=== PATIENT | female | born 2000 | race Caucasian/White ===

== ENCOUNTER 2021-03-30 02:24 | Emergency (ER) | payer SELFPAY ==
[~2021-03-30] VITALS: Ht 173 cm; Wt 78.0 kg
[2021-03-30] MEDS ORDERED: PANTOPRAZOLE 40 MG (PROTONIX) VIAL IV ONE (02:30)
[2021-03-30] MEDS ORDERED: ONDANSETRON 4 MG/2 ML (SDV) Z0FRAN IVP ONE (02:30)
[2021-03-30] MEDS ORDERED: LACTATED RINGERS 1,000 ML IV ONE ×3 (02:30→03:30)
[2021-03-30] MEDS ORDERED: ONDANSETRON 4 MG/2 ML (SDV) Z0FRAN ONE (02:35)
[2021-03-30] MEDS ORDERED: PANTOPRAZOLE 40 MG (PROTONIX) VIAL ONE (02:35)
--- NOTE | 2021-03-30 02:39 | ED General ---
General Chief Complaint: Substance Abuse Stated Complaint: ETOH Source of Information: Patient Exam Limitations: Intoxication History of Present Illness Date Seen by Provider: Mar 30, 2021 Time Seen by Provider: 02:27 Initial Comments PT ARRIVES VIA POV --FRIENDS BROUGHT HER TO ER PT IS INTOXICATED AND HAS BEEN VOMITING/DRY HEAVING PT STATES SHE HAS BEEN TO MULTIPLE FRAT PARTIES TONIGHT--CLAIMS SHE HAS HAD 2 BEERS AND 2 SHOTS OF DENIES LEAVING DRINKS UNATTENDED ON ARRIVAL, PT IS UNABLE TO STAND OR TALK,AND APPEARED "UNRESPONSIVE" AND PT REQUIRED WHEELCHAIR ON ARRIVAL AND IS DRY HEAVING LITERALLY SOON PT GOT BACK TO ROOM AND ONTO ER CART, PT IS NOW SUDDENLY AWAKE, ALERT, SMILING AND TALKING AND ANSWERING ALL QUESTIONS, WITH VERY MINIMAL SLURRING OF SPEECH, AND NO LONGER DRY HEAVING PT IS ABLE TO GET UP TO BEDSIDE COMMODE ON HER OWN PT IS [employer] FROM [place] CLAIMS SHE ONLY DRINKS ONCE A MONTH DENIES DRUG USE LMP--UNKNOWN, NO CONTROL, IS SEXUALLY ACTIVE [employer] Allergies and Home Medications Allergies Coded Allergies: No Allergy Information Available (Unverified , 03/30/21) Physical Exam Vital Signs Vital Signs - First Documented 03/30/21 02:28 Temp 36.6 Pulse 80 Resp 12 B/P (MAP) 124/85 (98) Pulse Ox 100 O2 Delivery Room Air Capillary Refill : Height, Weight, BMI Height: '" Weight: lbs. oz. kg; BMI Method: Progress/Results/Core Measures Suspected Sepsis SIRS Temperature: Pulse: Respiratory Rate: Laboratory Tests 03/30/21 02:30: White Blood Count 9.6 Blood Pressure / Mean: Laboratory Tests 03/30/21 02:30: Creatinine 0.93, Platelet Count 318, Total Bilirubin 0.3 Results/Orders Lab Results Laboratory Tests Test 03/30/21 02:30 03/30/21 04:05 Range/Units White Blood Count 9.6 4.3-11.0 10^3/uL Red Blood Count 4.17 3.80-5.11 10^6/uL Hemoglobin 13.0 11.5-16.0 g/dL Hematocrit 37 35-52 % Mean Corpuscular Volume 90 80-99 fL Mean Corpuscular Hemoglobin 31 25-34 pg Mean Corpuscular Hemoglobin Concent 35 32-36 g/dL Red Cell Distribution Width 12.6 10.0-14.5 % Platelet Count 318 130-400 10^3/uL Mean Platelet Volume 9.4 9.0-12.2 fL Immature Granulocyte % (Auto) 0 % Neutrophils (%) (Auto) 52 42-75 % Lymphocytes (%) (Auto) 39 12-44 % Monocytes (%) (Auto) 7 0-12 % Eosinophils (%) (Auto) 2 0-10 % Basophils (%) (Auto) 1 0-10 % Neutrophils # (Auto) 4.9 1.8-7.8 10^3/uL Lymphocytes # (Auto) 3.8 1.0-4.0 10^3/uL Monocytes # (Auto) 0.7 0.0-1.0 10^3/uL Eosinophils # (Auto) 0.1 0.0-0.3 10^3/uL Basophils # (Auto) 0.1 0.0-0.1 10^3/uL Immature Granulocyte # (Auto) 0.0 0.0-0.1 10^3/uL Sodium Level 140 135-145 MMOL/L Potassium Level 3.6 3.6-5.0 MMOL/L Chloride Level 106 98-107 MMOL/L Carbon Dioxide Level 21 21-32 MMOL/L Anion Gap 13 5-14 MMOL/L Blood Urea Nitrogen 9 7-18 MG/DL Creatinine 0.93 0.60-1.30 MG/DL Estimat Glomerular Filtration Rate 77 BUN/Creatinine Ratio 10 Glucose Level 109 H 70-105 MG/DL Calcium Level 9.3 8.5-10.1 MG/DL Corrected Calcium 8.9 8.5-10.1 MG/DL Total Bilirubin 0.3 0.1-1.0 MG/DL Aspartate Amino Transf (AST/SGOT) 23 5-34 U/L Alanine Aminotransferase (ALT/SGPT) 20 0-55 U/L Alkaline Phosphatase 39 L 40-136 U/L Total Protein 7.8 6.4-8.2 GM/DL Albumin 4.5 3.2-4.5 GM/DL Amylase Level 62 25-125 U/L Lipase 20 8-78 U/L Serum Test, Qualitative NEGATIVE NEGATIVE Acetaminophen Level < 10 L 10-30 UG/ML Serum Alcohol 204 H <10 MG/DL My Orders Orders - ANGÉLICA HERRERA DO Ed Iv/Invasive Line Start (03/30/21 02:26) Monitor-Rhythm Ecg Trace Only (03/30/21 02:26) Acetaminophen (03/30/21 02:26) Alcohol (03/30/21 02:26) Amylase (03/30/21 02:26) Cbc With Automated Diff (03/30/21 02:26) Comprehensive Metabolic Panel (03/30/21 02:26) Drug Screen Stat (Urine) (03/30/21 02:26) Hcg,Qualitative Serum (03/30/21 02:) Lipase (03/30/21 02:26) Ua Culture If Indicated (03/30/21 02:26) Ed Iv/Invasive Line Start (03/30/21 02:26) Catheter(Urinary) Insert & Ass 03,15 (03/30/21 02:26) Ed Iv/Invasive Line Start (03/30/21 02:26) Lactated Ringers (Lr 1000 Ml Iv Solution (03/30/21 02:30) Ondansetron Injection (Zofran Injectio (03/30/21 02:30) Pantoprazole Injection (Protonix Injecti (03/30/21 02:30) Ondansetron Injection (Zofran Injectio (03/30/21 02:35) Pantoprazole Injection (Protonix Injecti (03/30/21 02:35) Lactated Ringers (Lr 1000 Ml Iv Solution (03/30/21 02:35) Ed Iv/Invasive Line Start (03/30/21 03:28) Lactated Ringers (Lr 1000 Ml Iv Solution (03/30/21 03:30) Medications Given in ED Current Medications Medications Dose Ordered Sig/Miguelito Route Start Time Stop Time Status Last Admin Dose Admin Lactated Ringer's 1,000 ml @ 0 mls/hr Q0M ONCE IV 03/30/21 02:30 03/30/21 02:31 DC 03/30/21 02:38 0 MLS/HR Lactated Ringer's 1,000 ml @ 0 mls/hr Q0M ONCE IV 03/30/21 03:30 03/30/21 03:31 DC 03/30/21 03:31 0 MLS/HR Ondansetron HCl 8 mg ONCE ONCE IVP 03/30/21 02:30 03/30/21 02:31 DC 03/30/21 02:38 8 MG Pantoprazole 40 mg ONCE ONCE IV 03/30/21 02:30 03/30/21 02:31 DC 03/30/21 02:38 40 MG Vital Signs/I&O 03/30/21 02:28 Temp 36.6 Pulse 80 Resp 12 B/P (MAP) 124/85 (98) Pulse Ox 100 O2 Delivery Room Air Capillary Refill : Progress Note : Progress Note GIVEN IV FLUIDS, ZOFRAN AND PROTONIX NO VOMITING DURING ER STAY PT ABLE TO WALK ON HER OWN AND TALK AT TIME OF DISMISSAL Departure Impression Primary Impression: Acute alcoholic intoxication Disposition: HOME, SELF-CARE Condition: Improved Departure-Patient Inst. Decision time for Depature: 04:25 Referrals: WALTER JACKSON MD Patient Instructions: ALCOHOL AND SUBSTANCE ABUSE, Alcohol Intoxication ED Add. Discharge Instructions: NO ALCOHOL OR DRUGS CLEAR LIQUIDS--WATER, BROTH, JELLO, GATORADE TYLENOL NEEDED FOR PAIN FOLLOW UP WITH [facility] NEEDED All discharge instructions reviewed with patient and/or family. Voiced understanding. ANGÉLICA HERRERA DO Mar 30, 2021 02:39
[2021-03-30 02:44] LABS: BASOPHILS # (AUTO) 0.1 10^3/uL (0.0-0.1); BASOPHILS % (AUTO) 1 % (0-10); EOSINOPHILS # (AUTO) 0.1 10^3/uL (0.0-0.3); EOSINOPHILS % (AUTO) 2 % (0-10); HEMATOCRIT 37 % (35-52); LYMPHOCYTES # (AUTO) 3.8 10^3/uL (1.0-4.0); LYMPHOCYTES % (AUTO) 39 % (12-44); MEAN CORPUSCULAR HEMOGLOBIN 31 pg (25-34); MEAN CORPUSCULAR HGB CONC 35 g/dL (32-36); MEAN CORPUSCULAR VOLUME 90 fL (80-99); MEAN PLATELET VOLUME 9.4 fL (9.0-12.2); MONOCYTES # (AUTO) 0.7 10^3/uL (0.0-1.0); MONOCYTES % (AUTO) 7 % (0-12); NEUTROPHILS # (AUTO) 4.9 10^3/uL (1.8-7.8); NEUTROPHILS % (AUTO) 52 % (42-75); PLATELET COUNT 318 10^3/uL (130-400); WHITE BLOOD COUNT 9.6 10^3/uL (4.3-11.0)
[2021-03-30 02:53] LABS: CHLORIDE 106 MMOL/L (98-107); POTASSIUM 3.6 MMOL/L (3.6-5.0); SODIUM 140 MMOL/L (135-145)
[2021-03-30 02:54] LABS: ALBUMIN 4.5 GM/DL (3.2-4.5)
[2021-03-30 02:55] LABS: AMYLASE 62 U/L (25-125); CALCIUM 9.3 MG/DL (8.5-10.1)
[2021-03-30 02:56] LABS: GLUCOSE 109 MG/DL (70-105); TOTAL PROTEIN 7.8 GM/DL (6.4-8.2)
[2021-03-30 02:57] LABS: CARBON DIOXIDE 21 MMOL/L (21-32)
[2021-03-30 02:58] LABS: BILIRUBIN,TOTAL 0.3 MG/DL (0.1-1.0)
[2021-03-30 02:59] LABS: ALKALINE PHOSPHATASE 39 U/L (40-136)
[2021-03-30 03:00] LABS: CREATININE SERUM 0.93 MG/DL (0.60-1.30); GFR ESTIMATED 77
[2021-03-30 03:01] LABS: BUN/CREATININE RATIO 10
[2021-03-30 03:03] LABS: ACETAMINOPHEN < 10 UG/ML (10-30); ALANINE AMINOTRANSFERASE 20 U/L (0-55); LIPASE 20 U/L (8-78)
[2021-03-30 04:14] LABS: BILIRUBIN,URINE NEGATIVE (NEGATIVE); CLARITY,URINE CLEAR; COLOR,URINE YELLOW; GLUCOSE, URINE (UA) NEGATIVE (NEGATIVE); KETONES,URINE NEGATIVE (NEGATIVE); LEUKOCYTE ESTERASE ,URINE NEGATIVE (NEGATIVE); NITRITE,URINE NEGATIVE (NEGATIVE); PROTEIN,URINE NEGATIVE (NEGATIVE)
[2021-03-30 04:25] LABS: BACTERIA,URINE TRACE /HPF; RBC,URINE 50-100 /HPF; SQUAMOUS EPITHELIAL CELL,UR RARE /HPF; WBC,URINE 0-2 /HPF
[2021-03-30 04:28] LABS: AMPHETAMINE SCREEN, URINE NEGATIVE (NEGATIVE); BARBITURATE SCREEN URINE NEGATIVE (NEGATIVE); BENZODIAZEPINES SCREEN URINE NEGATIVE (NEGATIVE); CANNABINOID SCREEN, URINE NEGATIVE (NEGATIVE); COCAINE SCREEN URINE NEGATIVE (NEGATIVE); METHADONE STAT NEGATIVE (NEGATIVE); METHAMPHETAMINE SCREEN URINE S NEGATIVE (NEGATIVE); OPIATE SCREEN URINE NEGATIVE (NEGATIVE); OXYCODONE STAT NEGATIVE (NEGATIVE); PROPOXYPHENE STAT NEGATIVE (NEGATIVE); TRICYCLIC ANTIDEPRESSANTS SCRE NEGATIVE (NEGATIVE)
[2021-03-30 04:29] VITALS: BP 114/67
== END 2021-03-30 04:32 | disposition home or self-care (01) ==
LOC: ER 02:29
DX: F10.129 Alcohol abuse with intoxication, unspecified (principal)
CPT/HCPCS: 80053; 80306; 81000; 82150; 83690; 84703; 85025; 93041; 99284; G0480 ×2; 36415; 80320; 80329